=== PATIENT | female | born 1995 | race American Indian/Alaskan Native ===

== ENCOUNTER 2017-05-16 19:36 | Emergency (ER) | payer OTHER ==
[2017-05-16 19:52] VITALS: RESP 16; TEMP 97.5
[2017-05-16] MEDS ORDERED: Lidocaine 5% Patch TD STA (20:21)
[2017-05-16] MEDS ORDERED: Dexamethasone 4 mg/1 ml IVP STA (20:21)
[2017-05-16] MEDS ORDERED: Dexamethasone 4 mg/1 ml ONE (21:12)
[2017-05-16] MEDS ORDERED: Lidocaine 5% Patch TD ONE (21:13)
[2017-05-16 21:36] LABS: RBC URINE 3 /hpf (0-3); URINE BACTERIA RARE (<OCC); URINE BILIRUBIN NEGATIVE (NEGATIVE); URINE BLOOD NEGATIVE (NEGATIVE); URINE COLOR Yellow (YELLOW); URINE GLUCOSE (UA) NORMAL (Normal); URINE KETONE NEGATIVE (NEGATIVE); URINE LEUKOCYTE ESTERASE 1+ Leu/uL (Negative); URINE PROTEIN NEGATIVE (NEGATIVE); URINE UROBILINOGEN NORMAL mg/dL (0.2-1.0); WBC URINE 3 /hpf (0-5)
--- NOTE | 2017-05-16 21:42 | C.PDOC ---
History Of Present Illness 21 year old female with a Hx of back problem presents to the ER with a complaint of lower back pain that radiates to the right left since yesterday. Patient states she was running to catch the train to work yesterday when she felt a sudden pain to the lower right back that progressively worsened. Patient was seen in [facility] [place] where she was given flexeril and an unknown injection , however, pain persists. Patient had back surgery 5 years ago and reports so prior problems until this event. Denies weakness, numbness, incontinence, dysuria, or hematuria. Time Seen by Provider: 05/16/17 20:08 Chief Complaint (Nursing): Back Pain History Per: Patient History/Exam Limitations: no limitations Onset/Duration Of Symptoms: Days Current Symptoms Are (Timing): Still Present Previous Symptoms: Back Pain, Prior Surgery Associated Symptoms: None Recent travel outside of the [place]: No Past Medical History Reviewed: Historical Data, Nursing Documentation, Vital Signs Vital Signs: Last Vital Signs Temp 97.5 F L 05/16/17 19:46 Pulse 70 05/16/17 22:54 Resp 16 05/16/17 22:54 BP 118/68 05/16/17 22:54 Pulse Ox 99 05/16/17 22:54 - Medical History PMH: Back Problems (herniated disc) Surgical History: Back Surgery (2011) Family History: States: Unknown Family Hx - Social History Hx Alcohol Use: No Hx Substance Use: Yes Review Of Systems Genitourinary: Negative for: Dysuria, Incontinence, Hematuria Musculoskeletal: Positive for: Back Pain, Leg Pain Neurological: Negative for: Weakness, Numbness Physical Exam - Physical Exam Appears: Non-toxic, Other (Uncomfortable) Skin: Normal Color, Warm, Dry Head: Atraumatic, Normacephalic Eye(s): bilateral: Normal Inspection Gastrointestinal/Abdominal: Normal Exam, Soft, No Tenderness, No Organomegaly, No Guarding Back: No Vertebral Tenderness, Paraspinal Tenderness (Right sided), Straight Leg Raising (Positive at 10 degrees) Extremity: Tenderness (Right buttock), No Deformity, No Swelling Neurological/Psych: Oriented x3, Normal Speech, Normal Cognition, Normal Motor, Normal Sensation Gait: Other (with limp) ED Course And Treatment O2 Sat by Pulse Oximetry: 98 (Room air) Pulse Ox Interpretation: Normal Progress Note: Decadron, toradol, and valium administered. Lidoderm applied. On re-evaluation patient feels better and is stable to be d/c home. Patient is ambulatory in ED. Disposition - Disposition Disposition: HOME/ ROUTINE Disposition Time: 22:49 Condition: IMPROVED Additional Instructions: Follow up with PMD within 1-2 days. Return to Ed if feel worse. Prescriptions: Lidocaine 5% [Lidoderm] 1 patch TP DAILY #30 patch Methylprednisolone [Medrol] 4 mg PO DAILY #42 tab Ibuprofen [Motrin Tab] 600 mg PO Q8 #30 tab diaZEpam [Valium] 2 mg PO TID #15 tab Instructions: Back Pain (ED) Forms: [employer] ([place]) - Clinical Impression Clinical Impression: Low back pain - Scribe Statement The provider has reviewed the documentation as recorded by the Scribe Xavier Nam All medical record entries made by the Scribe were at my direction and personally dictated by me. I have reviewed the chart and agree that the record accurately reflects my personal performance of the history, physical exam, medical decision making, and the department course for this patient. I have also personally directed, reviewed, and agree with the discharge instructions and disposition.
[2017-05-16 22:55] VITALS: BP 118/68; PULSE 70
[2017-05-16 23:07] VITALS: O2SAT 98
== END 2017-05-16 22:54 | disposition home or self-care (01) ==
LOC: C.ER 19:36
DX: M54.5 Low back pain (principal)
CPT/HCPCS: 81001; 84703; 96374; 96375; 99283; J1100; J1885